=== PATIENT | female | born 1955 | race African-American/Black ===

== ENCOUNTER 2017-06-24 22:07 | Emergency (ER) | payer MEDICAID ==
[~2017-06-24] VITALS: Ht 165.1 cm; Wt 68.0 kg
[~2017-06-24 22:07] MED LIST: AMLO5TAB2 PO; CARI-277 PO; GABA100C9 PO; NOR10T PO
[2017-06-24 23:14] LABS: Basophils # (auto) 0.1 uL; Basophils % (auto) 0.3 % (0.0-2.0); Eosinophils # (auto) 0 uL; Hematocrit 41.1 % (36.0-46.0); Hemoglobin 13.8 g/dL (12.2-16.2); Lymphocytes # (auto) 0.6 uL; Lymphocytes % (auto) 3.1 % (10.0-50.0); Mean Corpuscular Hemoglobin 31.6 pg (28.0-32.0); Mean Corpuscular Hgb Conc. 33.7 g/dL (32.0-36.0); Mean Corpuscular Volume 93.8 fL (80.0-100.0); Monocytes # (auto) 0.5 uL; Monocytes % (auto) 2.7 % (0.0-12.0); Neutrophils # (auto) 17.4 uL; Neutrophils % (auto) 93.9 % (37.0-80.0); Nucleated Red Blood Cells % 0.1 %; Platelet Count (auto) 377 10^3/uL (140-450); Red Blood Cells 4.38 10^6/uL (4.0-5.20); Red Cell Distribution Width 13.4 % (11.8-14.3); White Blood Cell 18.5 10^3/uL (4.4-10.8)
[2017-06-24 23:28] LABS: INR 0.95 (0.9-1.15); Partial Thromboplastin Time 24.8 sec (22.64-33.71); Prothrombin Time 10.3 sec (9.37-12.3)
[2017-06-24 23:34] LABS: Alanine Aminotransferase 26 U/L (13-56); Albumin 4.9 g/dL (3.4-5.0); Alkaline Phosphatase 106 U/L (45-117); Anion Gap 15 (5-15); Aspartate Aminotransferase 21 U/L (15-37); BUN/Creatinine Ratio 25.3; Bilirubin, Total 0.9 mg/dL (0.2-1.0); Blood Urea Nitrogen 19 mg/dL (7-18); Calcium 9.8 mg/dL (8.5-10.1); Carbon Dioxide 20 mmol/L (21-32); Chloride 100 mmol/L (98-107); GFR African American 101 mL/min; GFR Non-African American 83 mL/min; Glucose 214 mg/dL (74-106); Magnesium 2.4 mg/dL (1.6-2.6); Potassium 3.5 mmol/L (3.5-5.1); Sodium 135 mmol/L (136-145); Total Protein 9.7 g/dL (6.4-8.2)
[2017-06-25] MEDS ORDERED: ONDANSETRON HCL 4 MG/2 ML VIAL IV ONE ×2 (04:15→08:00)
[2017-06-25 04:38] LABS: Lactic Acid w/Reflex 2.2 mmol/L (0.4-2.0)
[2017-06-25] MEDS ORDERED: MORPHINE SULFATE 4 MG/ML SYR/VIAL IV ONE ×2 (04:45→08:00)
[2017-06-25] MEDS ORDERED: SODIUM CHLORIDE 0.9% 1,000 ML IV ONE (04:45)
[2017-06-25] MEDS ORDERED: cefTRIAXone 1GM/10ml IVPUSH 10 ML IV ONE (04:45)
[2017-06-25] MEDS ORDERED: FAMOTIDINE (10MG/ML) 2ML VL IV ONE (05:45)
[2017-06-25] MEDS ORDERED: amLODIPine BESYLATE 5 MG TAB PO ONE (05:45)
[2017-06-25] MEDS ORDERED: SODIUM CHLORIDE 0.9% 1,000 ML IVB ONE (07:53)
[2017-06-25 08:25] LABS: Amylase 60 U/L (25-115); Lipase 82 U/L (73-393)
[2017-06-25 11:22] LABS: Urine Bacteria NONE SEEN /hpf (None Seen); Urine Blood TRACE /uL (Negative); Urine Hyaline Cast FEW /lpf (0 - 2); Urine Mucus FEW (None Seen); Urine WBC <1 /hpf (0 - 5)
[2017-06-25 12:27] VITALS: BP 132/81
[2017-06-25] MEDS ORDERED: ONDANSETRON ODT 4 MG TAB PO ONE (13:00)
[2017-06-25] MEDS ORDERED: ACETAMINOPHEN/CODEINE#3 (300/30mg) TAB PO ONE (13:00)
== END 2017-06-25 11:34 | disposition home or self-care (01) ==
LOC: EDBD 22:07 → ER 22:12
DX: R10.31 Right lower quadrant pain (principal); I11.0 Hypertensive heart disease with heart failure; I50.9 Heart failure, unspecified; Z90.49 Acquired absence of other specified parts of digestive tract; Z90.710 Acquired absence of both cervix and uterus; Z87.891 Personal history of nicotine dependence
CPT/HCPCS: 36415; 71045; 74176; 80053; 81001; 82150; 83605; 83690; 83735; 84484; 85025; 85610; 85730; 87040; 93005; 96361; 96374; 96375; 96376; 99285; J2270; J2405; J3490; J7030; Q0162

== ENCOUNTER 2017-09-29 20:56 | Emergency (ER) | payer MEDICAID ==
[~2017-09-29] VITALS: Ht 167.6 cm; Wt 68.0 kg
[2017-09-29 21:36] LABS: Basophils # (auto) 0.1 uL; Basophils % (auto) 0.4 % (0.0-2.0); Eosinophils # (auto) 0 uL; Hematocrit 40.7 % (36.0-46.0); Lymphocytes # (auto) 0.6 uL; Lymphocytes % (auto) 3.4 % (10.0-50.0); Mean Corpuscular Hemoglobin 32.3 pg (28.0-32.0); Mean Corpuscular Hgb Conc. 34.4 g/dL (32.0-36.0); Mean Corpuscular Volume 93.8 fL (80.0-100.0); Monocytes # (auto) 0.6 uL; Monocytes % (auto) 3.7 % (0.0-12.0); Neutrophils # (auto) 15.1 uL; Neutrophils % (auto) 92.5 % (37.0-80.0); Platelet Count (auto) 335 10^3/uL (140-450); Red Blood Cells 4.34 10^6/uL (4.0-5.20); Red Cell Distribution Width 13.6 % (11.8-14.3); White Blood Cell 16.3 10^3/uL (4.4-10.8)
[2017-09-29 21:49] LABS: Alanine Aminotransferase 106 U/L (13-56); Albumin 4.7 g/dL (3.4-5.0); Amylase 47 U/L (25-115); Anion Gap 16 (5-15); Aspartate Aminotransferase 89 U/L (15-37); BUN/Creatinine Ratio 22.1; Blood Urea Nitrogen 19 mg/dL (7-18); Calcium 9.1 mg/dL (8.5-10.1); Carbon Dioxide 21 mmol/L (21-32); Chloride 98 mmol/L (98-107); GFR African American 86 mL/min; GFR Non-African American 71 mL/min; Glucose 166 mg/dL (74-106); Lipase 60 U/L (73-393); Potassium 3.9 mmol/L (3.5-5.1); Sodium 135 mmol/L (136-145)
[2017-09-29 21:56] LABS: Alkaline Phosphatase 126 U/L (45-117); Bilirubin, Total 0.7 mg/dL (0.2-1.0); Total Protein 9.8 g/dL (6.4-8.2)
[2017-09-29] MEDS ORDERED: ONDANSETRON ODT 4 MG TAB PO ONE ×2 (22:40→22:45)
[2017-09-29] MEDS ORDERED: cloNIDine HCL 0.1 MG TAB ONE (22:40)
[2017-09-29] MEDS ORDERED: cloNIDine HCL 0.1 MG TAB PO ONE (22:45)
[2017-09-29 22:58] LABS: INR 0.91 (0.9-1.15); Partial Thromboplastin Time 28.8 sec (23.78-33.04); Prothrombin Time 9.8 sec (9.27-12.13)
[2017-09-30] MEDS ORDERED: SODIUM CHLORIDE 0.9% 1,000 ML IV ONE (02:00)
[2017-09-30] MEDS ORDERED: ONDANSETRON HCL 4 MG/2 ML VIAL IV ONE (02:00)
[2017-09-30] MEDS ORDERED: NALBUPHINE HCL 10 MG/1ml INJECTION IV ONE (02:00)
[2017-09-30 02:11] VITALS: BP 147/80
[2017-09-30] MEDS ORDERED: FAMOTIDINE (10MG/ML) 2ML VL IV ONE (05:00)
== END 2017-09-30 03:05 | disposition home or self-care (01) ==
LOC: EDBD 20:56 → ER 20:56
DX: K29.60 Other gastritis without bleeding (principal); K44.9 Diaphragmatic hernia without obstruction or gangrene; J45.909 Unspecified asthma, uncomplicated; I11.0 Hypertensive heart disease with heart failure; I50.9 Heart failure, unspecified; Z90.49 Acquired absence of other specified parts of digestive tract; Z90.710 Acquired absence of both cervix and uterus; Z87.891 Personal history of nicotine dependence
CPT/HCPCS: 36415; 71045; 74176; 80053; 82150; 83690; 84484; 85025; 85610; 85730; 96361; 96374; 96375; 99285; J2300; J2405; J3490; J7030; Q0162; 93005